=== PATIENT | female | born 1950 | race African-American/Black ===

== ENCOUNTER 2018-04-26 11:10 | Inpatient (IN) ==
[2018-04-26 11:23] VITALS: BMI 34.3
[2018-04-26 11:59] LABS: ABG ALLEN TEST POS; ABG HCO3 17.8 mmol/L (22-26)
[2018-04-26 12:05] LABS: BASOPHILS # (AUTO) 0.1 X10^3/uL (0.0-0.1); BASOPHILS % (AUTO) 0.9 % (0.2-1.0); EOSINOPHILS # (AUTO) 0.1 x10^3/uL (0.0-0.2); EOSINOPHILS % (AUTO) 1.2 % (0.9-2.9); HEMATOCRIT 28.1 % (36.0-47.0); HEMOGLOBIN 9.4 g/dL (12.0-16.0); LYMPHOCYTES # (AUTO) 1.3 X10^3/uL (1.3-2.9); LYMPHOCYTES % (AUTO) 22.6 % (21.0-51.0); MEAN CORPUSCULAR HEMOGLOBIN 32.1 pg (27.0-34.0); MEAN CORPUSCULAR HGB CONC 33.5 g/dL (33.0-35.0); MEAN CORPUSCULAR VOLUME 95.9 fL (80.0-100.0); MEAN PLATELET VOLUME 6.5 fL (7.4-11.0); MONOCYTES # (AUTO) 0.7 x10^3/uL (0.3-0.8); NEUTROPHILS # (AUTO) 3.5 x10^3/uL (2.2-4.8); NEUTROPHILS % (AUTO) 63.3 % (42.0-75.0); PLATELET COUNT 420 X10^3/uL (150.0-450.0); RED BLOOD COUNT 2.93 X10^6/uL (3.5-5.4); RED CELL DISTRIBUTION WIDTH 17.6 % (11.6-16.5); WHITE BLOOD COUNT 5.6 X10^3/uL (3.6-10.0)
[2018-04-26] MEDS ORDERED: TORADOL 30 MG VIAL IVP ONE (12:13)
[2018-04-26] MEDS ORDERED: TORADOL 30 MG VIAL ONE (12:17)
[2018-04-26 12:22] LABS: BLOOD UREA NITROGEN 8 mg/dL (7-18); CALCIUM 8.4 mg/dL (8.5-10.1); CARBON DIOXIDE 23.2 mmol/L (21-32); CHLORIDE 100 mmol/L (98-107); COR NA(FOR HYPERGLY) 138 mmol/L (136-145); CREATININE 0.81 mg/dL (0.55-1.02); SODIUM 136 mmol/L (136-145); TROPONIN I 0.02 ng/mL (0-1.5); eGFR NON BLACK RACES > 60 (>60)
[2018-04-26 12:26] LABS: ALANINE AMINOTRANSFERASE 13 Units/L (12-78); ALBUMIN 2.2 g/dL (3.4-5.0); ALKALINE PHOSPHATASE 95 Units/L (46-116); ASPARTATE AMINO TRANSFERASE 33 Units/L (15-37); COR CA(FOR HYPOALB) 9.8 mg/dL (8.5-10.1); CREATINE KINASE 53 Units/L (26-192); CREATINE KINASE MB < 1.0 ng/mL (0-4.0); MAGNESIUM 1.9 mg/dL (1.7-2.9); TOTAL PROTEIN 7.6 g/dL (6.4-8.2)
[2018-04-26 12:28] LABS: BAND NEUTROPHILS % 3 % (0-10); CKMB % 1.9 % (<4)
[2018-04-26 12:30] LABS: PLATELET MORPHOLOGY COMMENT NORMAL (NORMAL)
[2018-04-26 12:31] LABS: ANISOCYTOSIS 1+
--- NOTE | 2018-04-26 12:53 | RAD ---
Examination: Portable AP chest History: SOB Comparison reference: None Findings: Normal transverse heart diameter with clear lungs and pleural spaces. Impression: No acute chest findings. Reported By:
[2018-04-26 13:08] LABS: B-TYPE NATRIURETIC PEPTIDE 91.2 pg/mL (0-79)
--- NOTE | 2018-04-26 13:08 | DR.DIZZY ---
HPI - Time seen Time seen: 11:50 - PCP Primary Care Physician: KEM - HPI Comment HPI Comment: SYMTOMS GOING ON FOR 2 WEEKS. WORSE TODAY. - Complaint Chief Complaint Doctor Comments: GENERALIZE WEAKNESS, INCREASING SOB AND BILATERAL LOWER EXTREMITY PAIN AANDRLE SWELLING THAT IS GETTING WORSE. MEDS AT HOME NOT HELPING PAIN. NO FEVER. Chief Complaint:: PT C/O BILAT LOWER EXT PAIN AND WEAKNESS THAT HAS BEEN GOING ON FOR 2 WEEKS. PT STATES THE PAIN HAS GOTTEN WORSE YESTERDAY. - Nurses Notes Reviewed Nurses Notes Review: Yes - Source History Provided: Patient, Family Member - Mode of Arrival Mode of Arrival: Wheelchair - Timing Onset of Chief Complaint: 04/25/18 Came on: Suddenly Onset of Symptoms Start Date: 04/25/18 Onset of Symptoms Start Time: 08:00 - Duration Duration: Constant Duration: Weeks - Location of Weakness Weakness Location: Generalized - Context Onset: At rest, With light exertion, With heavy exertion Does pt take pot. toxic medication?: No History of: None Stroke Symptoms: Dizziness - Severity Severity: Abnormal activity level - Modifying factors Worsens: Rest - Associated signs and symptoms Associated Signs and Symptoms: Near Syncope, Imbalance, Weak, Headache, Chest Pain, Palpitations, Nausea PMH - PMH Past Medical History: Yes Past Medical History: Anxiety, Depression, Diabetes, Hypertension, Hyperthyroidism Past Medical History Comment: BREAST CA, Past Surgical History: Yes Surgical History: Hysterectomy Past Surgical History Comment: BILAT KNEE - Family History History of Family Medical Conditions: No - Social History Does any household member use tobacco: No Alcohol Use: None Do you use any recreational Drugs:: No Lives With: Family Lives Where: Home - infectious screening In the last 2 months have you had wt loss of >10#?: NO Have you had fever, night sweats or hemotysis?: No Have you traveled outside the country in the last 6 months?: No Isolation: Standard - Vital Signs Vitals: Temperature 99.5 F Pulse Rate 135 Respiratory Rate 24 Blood Pressure 150/95 O2 Sat by Pulse Oximetry 89 Course - Treatment Treatment: SEE ORDERS. - Education/Counseling Education/Counseling: Patient, Education Educated On: Diagnosis, Needs for Follow Up ROR - Labs Reviewed Laboratory Results Reviewed?: Yes Result Diagrams: 04/29/18 05:51 04/29/18 05:51 - XRAY XRAY Interpreted by: Radiologist XRAY Findings: REPORT DISCUSS WITH PATIENT AND FAMILY. - EKG Rhythm: ST (EKG NOTED) - Labs Reviewed Laboratory: WBC 6.6 X10^3/uL (3.6-10.0) 04/29/18 05:51 RBC 2.78 X10^6/uL (3.5-5.4) L 04/29/18 05:51 Hgb 9.0 g/dL (12.0-16.0) L 04/29/18 05:51 Hct 26.7 % (36.0-47.0) L 04/29/18 05:51 MCV 95.8 fL (80.0-100.0) 04/29/18 05:51 MCH 32.2 pg (27.0-34.0) 04/29/18 05:51 MCHC 33.6 g/dL (33.0-35.0) 04/29/18 05:51 RDW 17.9 % (11.6-16.5) H 04/29/18 05:51 Plt Count 314 X10^3/uL (150.0-450.0) 04/29/18 05:51 Plt Count Comment Adequate (ADEQUATE) 04/28/18 05:57 MPV 6.5 fL (7.4-11.0) L 04/29/18 05:51 Neut % (Auto) 73.2 % (42.0-75.0) 04/29/18 05:51 Lymph % (Auto) 13.7 % (21.0-51.0) L 04/29/18 05:51 [place] % (Auto) 11.2 % (0.0-13.0) 04/29/18 05:51 Eos % (Auto) 1.1 % (0.9-2.9) 04/29/18 05:51 Baso % (Auto) 0.8 % (0.2-1.0) 04/29/18 05:51 Neut # (Auto) 4.8 x10^3/uL (2.2-4.8) 04/29/18 05:51 Lymph # (Auto) 0.9 X10^3/uL (1.3-2.9) L 04/29/18 05:51 [place] # (Auto) 0.7 x10^3/uL (0.3-0.8) 04/29/18 05:51 Eos # (Auto) 0.1 x10^3/uL (0.0-0.2) 04/29/18 05:51 Baso # (Auto) 0.1 X10^3/uL (0.0-0.1) 04/29/18 05:51 Absolute Nucleated RBC 1.6 /100WBC 04/29/18 05:51 Total Counted 100 04/27/18 05:47 Neutrophils % (Manual) 50 % (39-76) 04/27/18 05:47 Band Neutrophils % 6 % (0-10) 04/27/18 05:47 Lymphocytes % (Manual) 32 % (13-43) 04/27/18 05:47 Monocytes % (Manual) 8 % (4-9) 04/27/18 05:47 Eosinophils % (Manual) 4 % (0-6) 04/27/18 05:47 Nucleated RBCs 5 04/28/18 05:57 Atypical Lymphocytes 3 04/26/18 11:55 Plt Morphology Comment Normal (NORMAL) 04/28/18 05:57 RBC Morphology Normal (NORMAL) 04/28/18 05:57 Anisocytosis 1+ A 04/26/18 11:55 INR Target Range - 04/27/18 05:47 INR 3.08 (0.8-1.3) H 04/27/18 05:47 APTT 51.4 SECONDS (22.9-36.5) H 04/27/18 05:47 PTT Comment - 04/27/18 05:47 D-Dimer > 5000 ng/mL (0-400) H* 04/26/18 11:55 Sample Site Lr 04/26/18 11:52 ABG pH 7.580 (7.35-7.45) H* 04/26/18 11:52 ABG pCO2 19.0 mmHg (35.0-45.0) L* 04/26/18 11:52 ABG pO2 53.0 mmHg (80.0-100.0) L 04/26/18 11:52 ABG HCO3 17.8 mmol/L (22-26) L* 04/26/18 11:52 ABG O2 Saturation 92.0 % (90-100) 04/26/18 11:52 ABG Base Excess -2.0 mmol/L (-2.0-2.0) 04/26/18 11:52 Zi Test Pos 04/26/18 11:52 A-a Gradient 73.0 mmHg 04/26/18 11:52 FiO2 21.000 04/26/18 11:52 Blood Gas Comments Pt shad well. cdn 04/26/18 11:52 Sodium 135 mmol/L (136-145) L 04/29/18 05:51 Corrected Sodium TNP 04/29/18 05:51 Potassium 3.9 mmol/L (3.5-5.1) 04/29/18 05:51 Chloride 100 mmol/L (98-107) 04/29/18 05:51 Carbon Dioxide 22.5 mmol/L (21-32) 04/29/18 05:51 BUN 8 mg/dL (7-18) 04/29/18 05:51 Creatinine 0.84 mg/dL (0.55-1.02) 04/29/18 05:51 Est GFR (MDRD) Af Amer > 60 (>60) 04/29/18 05:51 Est GFR (MDRD) Non-Af > 60 (>60) 04/29/18 05:51 Glucose 87 mg/dL (65-99) 04/29/18 05:51 Calcium 8.0 mg/dL (8.5-10.1) L 04/29/18 05:51 Corrected Calcium 9.8 mg/dL (8.5-10.1) 04/29/18 05:51 Magnesium 2.0 mg/dL (1.7-2.9) 04/27/18 05:47 Total Bilirubin 0.70 mg/dL (0.2-1.0) 04/29/18 05:51 AST 29 Units/L (15-37) 04/29/18 05:51 ALT 11 Units/L (12-78) L 04/29/18 05:51 Alkaline Phosphatase 97 Units/L (46-116) 04/29/18 05:51 Creatine Kinase 58 Units/L (26-192) 04/27/18 00:05 CK-MB (CK-2) 1.3 ng/mL (0-4.0) 04/27/18 00:05 CK/CKMB % Calc 2.2 % (<4) 04/27/18 00:05 Troponin I 0.05 ng/mL (0-1.5) 04/27/18 00:05 B-Natriuretic Peptide 91.2 pg/mL (0-79) H 04/26/18 11:55 Total Protein 6.9 g/dL (6.4-8.2) 04/29/18 05:51 Albumin 1.8 g/dL (3.4-5.0) L 04/29/18 05:51 Globulin 5.1 g/dL (2.5-4.5) H 04/29/18 05:51 Albumin/Globulin Ratio 0.4 Ratio (1.1-2.1) L 04/29/18 05:51 Specimen Type Clean catch urine 04/27/18 12:49 Urine Color Dark yellow (YELLOW) 04/27/18 12:49 Urine Appearance Slightly hazy (CLEAR) 04/27/18 12:49 Urine pH 5.0 (5.0 - 8.0) 04/27/18 12:49 Ur Specific [place] 1.015 (1.000-1.030) 04/27/18 12:49 Urine Protein 2+ (NEGATIVE) 04/27/18 12:49 Urine Glucose (UA) Negative (NEGATIVE) 04/27/18 12:49 Urine Ketones 1+ (NEGATIVE) 04/27/18 12:49 Urine Occult Blood 2+ (NEGATIVE) 04/27/18 12:49 Urine Nitrite Negative (NEGATIVE) 04/27/18 12:49 Urine Bilirubin Negative (NEGATIVE) 04/27/18 12:49 Urine Urobilinogen 1+ (NORMAL) 04/27/18 12:49 Ur Leukocyte Esterase 2+ (NEGATIVE) 04/27/18 12:49 Urine RBC 3-5 /HPF (NONE SEEN) 04/27/18 12:49 Urine WBC 3-5 /HPF (NONE SEEN) 04/27/18 12:49 Ur Squamous Epith Cells Rare /HPF (NEGATIVE) 04/27/18 12:49 Urine Bacteria Trace /HPF (NEGATIVE) 04/27/18 12:49 Urine Mucus Few /HPF (NEGATIVE) 04/27/18 12:49 Ur Culture Indicated? No/not indicated 04/27/18 12:49 Acetone, Semi-Quant Negative (NEGATIVE) 04/26/18 11:55 - Diagnosis Discharge Problem: Leg pain, bilateral, Generalized weakness, Hypoxia Pulmonary embolism Qualifiers: Pulmonary embolism type: other Chronicity: acute Acute cor pulmonale presence: without acute cor pulmonale Qualified Code(s): I26.99 - Other pulmonary embolism without acute cor pulmonale - Discharge Plan Disposition: 09 ADMITTED INPATIENT Condition: Stable
[2018-04-26] MEDS ORDERED: NS 100 ML IV + SPIKE MINIBAG* 100 ML IV ONE (13:39)
--- NOTE | 2018-04-26 14:26 | CT ---
CT CHEST WITH IV CONTRAST - PE PROTOCOL HISTORY: Elevated D-dimer and hypoxia Comparison: None Technique: Non gated axial images of the chest were obtained with intravenous contrast according to p monary embolism protocol. MIPS were reconstructed. Dose reduction techniques including Automated Ex posure Control (AEC) and adjustment of mA and kV were utlized. Findings: Small segmental pulmonary embolism within the right lower lobe best seen on series 4, image 81. No ev idence of right heart strain The heart is normal in size. No pericardial effusion. No suspicious mediastinal or axillary lymph no gilbert. No focal consolidations, pleural effusions or pneumothorax. Airways are patent. No suspicious pulmona ry nodules or masses. Limited images of the upper abdomen are unremarkable. No aggressive osseous lesions. IMPRESSION: 1. Small, segmental right lower lobe pulmonary embolism. No evidence of right heart strain. Reported By:
[2018-04-26] MEDS ORDERED: LOVENOX INJ 100 MG SYR SC SCH (17:00)
[2018-04-26] MEDS: NS 1000 ML 1,000 ML IV SCH (17:15)
--- NOTE | 2018-04-26 18:06 | VAS ---
HISTORY: PEs Study: Bilateral lower extremity venous Doppler ultrasound Comparison: None TECHNIQUE: Multiple willis scale and color flow Doppler images of the deep venous system were obtained of the right and left lower extremity. FINDINGS: The deep venous system of the right and left lower extremities were evaluated from the level of the c ommon femoral vein through the popliteal vein. Normal color flow and augmentation can be observed. In addition, normal compression is seen throughout the deep venous system. IMPRESSION: 1. Negative for DVT. Reported By:
[2018-04-26 19:21] LABS: CREATINE KINASE MB 1.2 ng/mL (0-4.0); TROPONIN I 0.03 ng/mL (0-1.5)
[2018-04-26] MEDS: XARELTO PO SCH (21:06)
[2018-04-26] MEDS: TYLENOL 325 MG TAB PO PRN (23:40)
[2018-04-27 00:27] LABS: CKMB % 2.2 % (<4); CREATINE KINASE MB 1.3 ng/mL (0-4.0); TROPONIN I 0.05 ng/mL (0-1.5)
[2018-04-27] MEDS: NS 1000 ML 1,000 ML IV SCH ×2 (04:59→20:56)
[2018-04-27 06:24] LABS: EOSINOPHILS # (AUTO) 0.1 x10^3/uL (0.0-0.2); EOSINOPHILS % (AUTO) 2.1 % (0.9-2.9); HEMATOCRIT 26.4 % (36.0-47.0); HEMOGLOBIN 8.9 g/dL (12.0-16.0); LYMPHOCYTES # (AUTO) 1.1 X10^3/uL (1.3-2.9); LYMPHOCYTES % (AUTO) 22.9 % (21.0-51.0); MEAN CORPUSCULAR HEMOGLOBIN 32.3 pg (27.0-34.0); MEAN CORPUSCULAR HGB CONC 33.9 g/dL (33.0-35.0); MEAN CORPUSCULAR VOLUME 95.3 fL (80.0-100.0); MEAN PLATELET VOLUME 6.6 fL (7.4-11.0); MONOCYTES # (AUTO) 0.7 x10^3/uL (0.3-0.8); MONOCYTES % (AUTO) 14.8 % (0.0-13.0); NEUTROPHILS # (AUTO) 2.9 x10^3/uL (2.2-4.8); NEUTROPHILS % (AUTO) 59.2 % (42.0-75.0); PLATELET COUNT 381 X10^3/uL (150.0-450.0); RED BLOOD COUNT 2.77 X10^6/uL (3.5-5.4); RED CELL DISTRIBUTION WIDTH 17.6 % (11.6-16.5); WHITE BLOOD COUNT 4.9 X10^3/uL (3.6-10.0)
[2018-04-27 07:13] LABS: ALANINE AMINOTRANSFERASE 13 Units/L (12-78); ALBUMIN 1.9 g/dL (3.4-5.0); ALKALINE PHOSPHATASE 88 Units/L (46-116); ASPARTATE AMINO TRANSFERASE 43 Units/L (15-37); BLOOD UREA NITROGEN 8 mg/dL (7-18); CALCIUM 8.3 mg/dL (8.5-10.1); CARBON DIOXIDE 22.4 mmol/L (21-32); CHLORIDE 103 mmol/L (98-107); CREATININE 0.72 mg/dL (0.55-1.02); SODIUM 138 mmol/L (136-145); TOTAL PROTEIN 6.9 g/dL (6.4-8.2); eGFR NON BLACK RACES > 60 (>60)
[2018-04-27 07:33] LABS: BAND NEUTROPHILS % 6 % (0-10); PLATELET MORPHOLOGY COMMENT NORMAL (NORMAL)
[2018-04-27] MEDS ORDERED: COLACE CAP 100 MG PO ONE (09:00)
[2018-04-27] MEDS: MILK OF MAGNESIA PO SCH ×2 (09:14→20:56)
[2018-04-27] MEDS: XARELTO PO SCH ×2 (09:14→20:57)
[2018-04-27] MEDS: TYLENOL 325 MG TAB PO PRN ×2 (12:30→20:57)
[2018-04-27 13:03] LABS: BILIRUBIN,URINE NEGATIVE (NEGATIVE); BLOOD/HEMOGLOBIN,URINE 2+ (NEGATIVE); GLUCOSE, URINE NEGATIVE (NEGATIVE); KETONES,URINE 1+ (NEGATIVE); LEUKOCYTE ESTERASE ,URINE 2+ (NEGATIVE); NITRITES,URINE NEGATIVE (NEGATIVE); PROTEIN,URINE 2+ (NEGATIVE); UROBILINOGEN,URINE 1+ (NORMAL)
[2018-04-27 13:22] LABS: APPEARANCE,URINE SLIGHTLY HAZY (CLEAR); COLOR,URINE DARK YELLOW (YELLOW)
[2018-04-27 13:23] LABS: BACTERIA,URINE TRACE /HPF (NEGATIVE); MUCUS,URINE FEW /HPF (NEGATIVE); SQUAMOUS EPITHELIAL CELL,UR RARE /HPF (NEGATIVE)
[2018-04-27] MEDS: ROCEPHIN VIAL 1 GRAM 1 G in NS 100 ML IV + SPIKE MINIBAG* 100 ML IV SCH (15:06)
[2018-04-27] MEDS: COLACE CAP 100 MG PO SCH (20:56)
[2018-04-28 06:42] LABS: BASOPHILS # (AUTO) 0.1 X10^3/uL (0.0-0.1); BASOPHILS % (AUTO) 0.7 % (0.2-1.0); EOSINOPHILS % (AUTO) 0.6 % (0.9-2.9); HEMATOCRIT 26.1 % (36.0-47.0); HEMOGLOBIN 8.9 g/dL (12.0-16.0); LYMPHOCYTES # (AUTO) 0.9 X10^3/uL (1.3-2.9); LYMPHOCYTES % (AUTO) 12.2 % (21.0-51.0); MEAN CORPUSCULAR HEMOGLOBIN 32.6 pg (27.0-34.0); MEAN CORPUSCULAR HGB CONC 34.1 g/dL (33.0-35.0); MEAN CORPUSCULAR VOLUME 95.5 fL (80.0-100.0); MEAN PLATELET VOLUME 6.9 fL (7.4-11.0); MONOCYTES # (AUTO) 0.8 x10^3/uL (0.3-0.8); MONOCYTES % (AUTO) 11.1 % (0.0-13.0); NEUTROPHILS # (AUTO) 5.5 x10^3/uL (2.2-4.8); NEUTROPHILS % (AUTO) 75.4 % (42.0-75.0); PLATELET COUNT 326 X10^3/uL (150.0-450.0); RED BLOOD COUNT 2.73 X10^6/uL (3.5-5.4); RED CELL DISTRIBUTION WIDTH 17.8 % (11.6-16.5); WHITE BLOOD COUNT 7.3 X10^3/uL (3.6-10.0)
[2018-04-28 07:01] LABS: PLATELET MORPHOLOGY COMMENT NORMAL (NORMAL)
[2018-04-28 07:15] LABS: ALANINE AMINOTRANSFERASE 12 Units/L (12-78); ALBUMIN 1.8 g/dL (3.4-5.0); ALKALINE PHOSPHATASE 94 Units/L (46-116); ASPARTATE AMINO TRANSFERASE 51 Units/L (15-37); BLOOD UREA NITROGEN 6 mg/dL (7-18); CARBON DIOXIDE 20.8 mmol/L (21-32); CHLORIDE 103 mmol/L (98-107); COR CA(FOR HYPOALB) 9.8 mg/dL (8.5-10.1); CREATININE 0.73 mg/dL (0.55-1.02); SODIUM 136 mmol/L (136-145); TOTAL PROTEIN 6.7 g/dL (6.4-8.2); eGFR NON BLACK RACES > 60 (>60)
[2018-04-28] MEDS ORDERED: GLUCOPHAGE ONE (08:50)
[2018-04-28] MEDS: ROCEPHIN VIAL 1 GRAM 1 G in NS 100 ML IV + SPIKE MINIBAG* 100 ML IV SCH (08:52)
[2018-04-28] MEDS: HYZAAR 50/12.5 MG PO SCH (08:52)
[2018-04-28] MEDS: XARELTO PO SCH ×2 (08:52→21:31)
[2018-04-28] MEDS: GLUCOPHAGE PO SCH (08:52)
[2018-04-28] MEDS: NS 1000 ML 1,000 ML IV SCH ×2 (08:53→21:31)
[2018-04-28] MEDS: MILK OF MAGNESIA PO SCH ×2 (08:53→21:31)
[2018-04-28] MEDS: ANTIVERT TAB 25 MG PO PRN ×2 (12:03→22:11)
--- NOTE | 2018-04-28 13:07 | DR.H&P ---
H&P - History & Physical for Day of: H&P Date: 04/26/18 - Chief Complaint Chief Complaint: lower extremity pain, weakness, shortness of breath - History of Present Illness History of Present Illness: is a 68 year old black female who presented to the Emergency Room with complaints of bilateral lower extremity pain and weakness. She reports that symptoms started approximately two weeks ago and has progressively gotten worse. Associated symptoms include shortness of breath. On arrival, vitals were 98.9, 115, 24, 94% RA, 157/88. Labs were obtained. Abnormal lab values include the following: RBC 2.93, HGB 9.4, HCT 28.1 , RDW 17.6, MPV 6.5, D-Dimer > 5000, Glucose 163, Calcium 8.4, Total Bilirubin 1.30, B-Natriurectic Peptide 91.2, Albumin 2.2, Globulin 5.4, A/G ratio 0.4. D- Dimer > 5000. An abg was collected and revealed a PH 7.580, PCO2 19.0, PO2 53.0 , HCO3 17.8. Chest x-ray revealed no acute chest findings. Chest CTA revealed a small, segmental right lower lobe pulmonary embolism. No evidence of right heart strain. A venous doppler study revealed negative for DVT. Patient has a history significant to breast cancer and is currently receiving treatments. Patient will be admitted to the hospital for further evaluation of leg pain, weakness, and pulmonary embolus. Patient will be started on NS 1000 ML IV @ KVO for gentle IV hydration and given Xarelto 15 MG PO BID for anticoagulation therapy. We will continue to monitor patient and repeat labs in the am. - Past Medical History Past Medical History: Anxiety, Depression, Diabetes, Hypertension, Hyperthyroidism - Past Surgical History Surgical History: Hysterectomy - Family History Family Medical History: Cancer, Hypertension - Social History Does patient currently use any type of tobacco product: No Have you used tobacco products in the last 12 months: No Type of Tobacco Use: None Does any household member use tobacco: No Alcohol Use: None Drug Use: None - Medications Home Medications: morphine Allergy (Unknown, Verified 04/26/18 19:11) CONTINUE taking the following medications fentanyl [Duragesic] 50 mcg/hr TRANSDERMAL .Q72HR 04/26/18 [History] losartan-hydrochlorothiazide [Hyzaar] 1 tab PO DAILY 04/26/18 [History] meclizine 1 tab PO BID PRN 04/26/18 [History] metformin 500 mg PO DAILY 04/26/18 [History] nitrofurantoin monohyd/m-cryst 1 tab PO BID 04/26/18 [History] sulfamethoxazole-trimethoprim 1 tab PO BID 04/26/18 [History] - Review of Systems Constitutional: Weakness Eyes: No Symptoms Reported ENT: No Symptoms Reported Respiratory: No Symptoms Reported Cardiovascular: No Symptoms Reported Gastrointestinal: No Symptoms Reported Genitourinary: No Symptoms Reported Musculoskeletal: Leg Pain Skin: No Symptoms Reported - Physical Exam Vital Signs: Temperature 99.3 F Pulse Rate [Apical] 109 Pulse Rate 135 Respiratory Rate 24 Blood Pressure [Left Arm] 143/68 Blood Pressure 150/95 O2 Sat by Pulse Oximetry 98 Oriented: Normal Eyes: Normal Ear: Normal Nose: Normal Throat: Normal Respiratory: Diminished Throughout Cardiovascular: Tachycardia. negative: S3, S4, Murmur : Normal Auscultation: Bowel Sounds: Normal Palpation: Normal Tenderness: Normal Skin: Normal Musculoskeletal: Normal Psychiatric: Normal Mood Description: Calm Affect: Normal Speech Pattern: Clear - Assessment/Plan (1) Pulmonary embolism Qualifiers: Pulmonary embolism type: other Chronicity: acute Acute cor pulmonale presence: without acute cor pulmonale Qualified Code(s): I26.99 - Other pulmonary embolism without acute cor pulmonale Status: Acute Plan: xarelto 15mg po bid, supplemental oxygen, continue to monitor (2) Leg pain, bilateral Status: Acute (3) Generalized weakness Status: Acute - Allergies Allergies/Adverse Reactions: Allergies Allergy/AdvReac Type Severity Reaction Status Date / Time morphine Allergy Unknown Verified 04/26/18 19:11
--- NOTE | 2018-04-28 15:21 | PCM.PROG ---
Progress Note - Progress Note for Day of Date: 04/27/18 - Subjective Subjective: IS BEING TREATED FOR A PUMONARY EMBOLISM, BILATERAL LEG PAIN, AND GENERALIZED WEAKNESS. TODAY, SHE IS ALERT AND ORIENTED, LYING IN BED ON MORNING ROUNDS. SHE CONTINUES WITH SHORTNESS OF BREATH AND GENERALIZED WEAKNESS. ON EXAMINATION, HEART IS REGULAR IN RATE AND RHYTHM. BILATERAL LUNGS ARE NOTED WITH DIMINISHED LUNG SOUNDS TO AUSCULTATION. ABDOMEN IS ROUND, SOFT, AND NON-TENDER WITH NORMAL BOWEL SOUNDS NOTED IN ALL QUADRANTS. HER VITALS THIS MORNING ARE 98.0-83-22-94%-132/78. LABS WERE OBTAINED. ABNORMAL LAB VALUES INCLUDE THE FOLLOWING: RBC 2.77, HGB 8.9, HCT 26.4, GLUCOSE 106, CALCIUM 8.3, AST 43, ALBUMIN 1.9. CARDIAC ENZYMES HAVE BEEN WITHIN NORMAL LIMITS. WE OBTAINED A URINALYSIS TODAY WHICH REVEALED WBC 3-5, RBC 3-5, LEUKOCYTES 2+, BACTERIA TRACE. SHE CONTINUES ON XARELTO 15MG PO BID. TODAY WE WILL START ROCEPHIN 1GM IV DAILY. OTHERWISE, WE WILL FOLLOW UP WITH AM LABS AND CONTINUE TO MONITOR PATIENT. - Past Medical Family Social History Past Med/Fam/Surg Hx: No changes since H&P Allergies: Allergies morphine Allergy (Unknown, Verified 04/26/18 19:11) - Review of Systems ROS: No change since H&P - Vital Signs and I&O's Vital Signs: Temperature 99.3 F Pulse Rate [Apical] 113 Pulse Rate 135 Respiratory Rate 30 Blood Pressure [Left Arm] 143/79 Blood Pressure 150/95 O2 Sat by Pulse Oximetry 92 Intake and Output: Intake & Output 04/26/18 04/27/18 04/28/18 04/29/18 11:59 11:59 11:59 11:59 Intake Total 961 / 961 1830 / 1830 Output Total 600 / 600 Balance 961 / 961 1230 / 1230 - Physical Exam Oriented: Normal Eyes: Normal Ear: Normal Nose: Normal Throat: Normal Respiratory: Diminished Cardiovascular: Tachycardia. negative: S3, S4, Murmur : Normal Auscultation: Bowel Sounds: Normal Palpation: Normal Tenderness: Normal Skin: Normal Musculoskeletal: Normal Psychiatric: Normal Mood Description: Calm Affect: Normal Speech Pattern: Clear - Laboratory and Diagnostics Result Diagrams: 04/28/18 05:57 04/28/18 05:57 Labs: Laboratory WBC 7.3 X10^3/uL (3.6-10.0) 04/28/18 05:57 RBC 2.73 X10^6/uL (3.5-5.4) L 04/28/18 05:57 Hgb 8.9 g/dL (12.0-16.0) L 04/28/18 05:57 Hct 26.1 % (36.0-47.0) L 04/28/18 05:57 MCV 95.5 fL (80.0-100.0) 04/28/18 05:57 MCH 32.6 pg (27.0-34.0) 04/28/18 05:57 MCHC 34.1 g/dL (33.0-35.0) 04/28/18 05:57 RDW 17.8 % (11.6-16.5) H 04/28/18 05:57 Plt Count 326 X10^3/uL (150.0-450.0) 04/28/18 05:57 Plt Count Comment Adequate (ADEQUATE) 04/28/18 05:57 MPV 6.9 fL (7.4-11.0) L 04/28/18 05:57 Neut % (Auto) 75.4 % (42.0-75.0) H 04/28/18 05:57 Lymph % (Auto) 12.2 % (21.0-51.0) L 04/28/18 05:57 [place] % (Auto) 11.1 % (0.0-13.0) 04/28/18 05:57 Eos % (Auto) 0.6 % (0.9-2.9) L 04/28/18 05:57 Baso % (Auto) 0.7 % (0.2-1.0) 04/28/18 05:57 Neut # (Auto) 5.5 x10^3/uL (2.2-4.8) H 04/28/18 05:57 Lymph # (Auto) 0.9 X10^3/uL (1.3-2.9) L 04/28/18 05:57 [place] # (Auto) 0.8 x10^3/uL (0.3-0.8) 04/28/18 05:57 Eos # (Auto) 0.0 x10^3/uL (0.0-0.2) 04/28/18 05:57 Baso # (Auto) 0.1 X10^3/uL (0.0-0.1) 04/28/18 05:57 Absolute Nucleated RBC 2.2 /100WBC 04/28/18 05:57 Total Counted 100 04/27/18 05:47 Neutrophils % (Manual) 50 % (39-76) 04/27/18 05:47 Band Neutrophils % 6 % (0-10) 04/27/18 05:47 Lymphocytes % (Manual) 32 % (13-43) 04/27/18 05:47 Monocytes % (Manual) 8 % (4-9) 04/27/18 05:47 Eosinophils % (Manual) 4 % (0-6) 04/27/18 05:47 Nucleated RBCs 5 04/28/18 05:57 Atypical Lymphocytes 3 04/26/18 11:55 Plt Morphology Comment Normal (NORMAL) 04/28/18 05:57 RBC Morphology Normal (NORMAL) 04/28/18 05:57 Anisocytosis 1+ A 04/26/18 11:55 INR Target Range - 04/27/18 05:47 INR 3.08 (0.8-1.3) H 04/27/18 05:47 APTT 51.4 SECONDS (22.9-36.5) H 04/27/18 05:47 PTT Comment - 04/27/18 05:47 D-Dimer > 5000 ng/mL (0-400) H* 04/26/18 11:55 Sample Site Lr 04/26/18 11:52 ABG pH 7.580 (7.35-7.45) H* 04/26/18 11:52 ABG pCO2 19.0 mmHg (35.0-45.0) L* 04/26/18 11:52 ABG pO2 53.0 mmHg (80.0-100.0) L 04/26/18 11:52 ABG HCO3 17.8 mmol/L (22-26) L* 04/26/18 11:52 ABG O2 Saturation 92.0 % (90-100) 04/26/18 11:52 ABG Base Excess -2.0 mmol/L (-2.0-2.0) 04/26/18 11:52 Zi Test Pos 04/26/18 11:52 A-a Gradient 73.0 mmHg 04/26/18 11:52 FiO2 21.000 04/26/18 11:52 Blood Gas Comments Pt shad well. cdn 04/26/18 11:52 Sodium 136 mmol/L (136-145) 04/28/18 05:57 Corrected Sodium TNP 04/28/18 05:57 Potassium 3.8 mmol/L (3.5-5.1) 04/28/18 05:57 Chloride 103 mmol/L (98-107) 04/28/18 05:57 Carbon Dioxide 20.8 mmol/L (21-32) L 04/28/18 05:57 BUN 6 mg/dL (7-18) L 04/28/18 05:57 Creatinine 0.73 mg/dL (0.55-1.02) 04/28/18 05:57 Est GFR (MDRD) Af Amer > 60 (>60) 04/28/18 05:57 Est GFR (MDRD) Non-Af > 60 (>60) 04/28/18 05:57 Glucose 89 mg/dL (65-99) 04/28/18 05:57 Calcium 8.0 mg/dL (8.5-10.1) L 04/28/18 05:57 Corrected Calcium 9.8 mg/dL (8.5-10.1) 04/28/18 05:57 Magnesium 2.0 mg/dL (1.7-2.9) 04/27/18 05:47 Total Bilirubin 0.80 mg/dL (0.2-1.0) 04/28/18 05:57 AST 51 Units/L (15-37) H 04/28/18 05:57 ALT 12 Units/L (12-78) 04/28/18 05:57 Alkaline Phosphatase 94 Units/L (46-116) 04/28/18 05:57 Creatine Kinase 58 Units/L (26-192) 04/27/18 00:05 CK-MB (CK-2) 1.3 ng/mL (0-4.0) 04/27/18 00:05 CK/CKMB % Calc 2.2 % (<4) 04/27/18 00:05 Troponin I 0.05 ng/mL (0-1.5) 04/27/18 00:05 B-Natriuretic Peptide 91.2 pg/mL (0-79) H 04/26/18 11:55 Total Protein 6.7 g/dL (6.4-8.2) 04/28/18 05:57 Albumin 1.8 g/dL (3.4-5.0) L 04/28/18 05:57 Globulin 4.9 g/dL (2.5-4.5) H 04/28/18 05:57 Albumin/Globulin Ratio 0.4 Ratio (1.1-2.1) L 04/28/18 05:57 Specimen Type Clean catch urine 04/27/18 12:49 Urine Color Dark yellow (YELLOW) 04/27/18 12:49 Urine Appearance Slightly hazy (CLEAR) 04/27/18 12:49 Urine pH 5.0 (5.0 - 8.0) 04/27/18 12:49 Ur Specific [place] 1.015 (1.000-1.030) 04/27/18 12:49 Urine Protein 2+ (NEGATIVE) 04/27/18 12:49 Urine Glucose (UA) Negative (NEGATIVE) 04/27/18 12:49 Urine Ketones 1+ (NEGATIVE) 04/27/18 12:49 Urine Occult Blood 2+ (NEGATIVE) 04/27/18 12:49 Urine Nitrite Negative (NEGATIVE) 04/27/18 12:49 Urine Bilirubin Negative (NEGATIVE) 04/27/18 12:49 Urine Urobilinogen 1+ (NORMAL) 04/27/18 12:49 Ur Leukocyte Esterase 2+ (NEGATIVE) 04/27/18 12:49 Urine RBC 3-5 /HPF (NONE SEEN) 04/27/18 12:49 Urine WBC 3-5 /HPF (NONE SEEN) 04/27/18 12:49 Ur Squamous Epith Cells Rare /HPF (NEGATIVE) 04/27/18 12:49 Urine Bacteria Trace /HPF (NEGATIVE) 04/27/18 12:49 Urine Mucus Few /HPF (NEGATIVE) 04/27/18 12:49 Ur Culture Indicated? No/not indicated 04/27/18 12:49 Acetone, Semi-Quant Negative (NEGATIVE) 04/26/18 11:55 - Plan (1) Pulmonary embolism Status: Acute Qualifiers: Pulmonary embolism type: other Chronicity: acute Acute cor pulmonale presence: without acute cor pulmonale Qualified Code(s): I26.99 - Other pulmonary embolism without acute cor pulmonale Plan: xarelto 15mg po bid, supplemental oxygen, continue to monitor (2) Leg pain, bilateral Status: Acute (3) Generalized weakness Status: Acute (4) Urinary tract infection Status: Acute Qualifiers: Urinary tract infection type: acute cystitis Hematuria presence: without hematuria Qualified Code(s): N30.00 - Acute cystitis without hematuria Plan: ROCEPHIN 1GM IV DAILY, CONTINUE TO MONITOR
[2018-04-28] MEDS: TYLENOL 325 MG TAB PO PRN (16:43)
[2018-04-28] MEDS: COLACE CAP 100 MG PO SCH (21:31)
[2018-04-29 06:10] LABS: BASOPHILS # (AUTO) 0.1 X10^3/uL (0.0-0.1); BASOPHILS % (AUTO) 0.8 % (0.2-1.0); EOSINOPHILS # (AUTO) 0.1 x10^3/uL (0.0-0.2); EOSINOPHILS % (AUTO) 1.1 % (0.9-2.9); HEMATOCRIT 26.7 % (36.0-47.0); LYMPHOCYTES # (AUTO) 0.9 X10^3/uL (1.3-2.9); LYMPHOCYTES % (AUTO) 13.7 % (21.0-51.0); MEAN CORPUSCULAR HEMOGLOBIN 32.2 pg (27.0-34.0); MEAN CORPUSCULAR HGB CONC 33.6 g/dL (33.0-35.0); MEAN CORPUSCULAR VOLUME 95.8 fL (80.0-100.0); MEAN PLATELET VOLUME 6.5 fL (7.4-11.0); MONOCYTES # (AUTO) 0.7 x10^3/uL (0.3-0.8); MONOCYTES % (AUTO) 11.2 % (0.0-13.0); NEUTROPHILS # (AUTO) 4.8 x10^3/uL (2.2-4.8); NEUTROPHILS % (AUTO) 73.2 % (42.0-75.0); PLATELET COUNT 314 X10^3/uL (150.0-450.0); RED BLOOD COUNT 2.78 X10^6/uL (3.5-5.4); RED CELL DISTRIBUTION WIDTH 17.9 % (11.6-16.5); WHITE BLOOD COUNT 6.6 X10^3/uL (3.6-10.0)
[2018-04-29 06:18] LABS: ALANINE AMINOTRANSFERASE 11 Units/L (12-78); ALBUMIN 1.8 g/dL (3.4-5.0); ALKALINE PHOSPHATASE 97 Units/L (46-116); ASPARTATE AMINO TRANSFERASE 29 Units/L (15-37); BLOOD UREA NITROGEN 8 mg/dL (7-18); CARBON DIOXIDE 22.5 mmol/L (21-32); CHLORIDE 100 mmol/L (98-107); COR CA(FOR HYPOALB) 9.8 mg/dL (8.5-10.1); CREATININE 0.84 mg/dL (0.55-1.02); SODIUM 135 mmol/L (136-145); TOTAL PROTEIN 6.9 g/dL (6.4-8.2); eGFR NON BLACK RACES > 60 (>60)
--- NOTE | 2018-04-29 07:54 | PCM.PROG ---
Progress Note - Progress Note for Day of Date: 04/28/18 - Subjective Subjective: IS BEING TREATED FOR A PUMONARY EMBOLISM, BILATERAL LEG PAIN, AND GENERALIZED WEAKNESS. TODAY, SHE IS ALERT AND ORIENTED, LYING IN BED ON MORNING ROUNDS. SHE CONTINUES WITH SHORTNESS OF BREATH AND GENERALIZED WEAKNESS. SHE ALSO REPORTS DIZZINESS WHEN SHE IS AMBULATING OR MOVING AROUND IN BED. ON EXAMINATION, HEART IS REGULAR IN RATE AND RHYTHM. BILATERAL LUNGS ARE NOTED WITH DIMINISHED LUNG SOUNDS TO AUSCULTATION. ABDOMEN IS ROUND, SOFT, AND NON-TENDER WITH NORMAL BOWEL SOUNDS NOTED IN ALL QUADRANTS. HER VITALS THIS MORNING ARE 98.3-64-7-100%-185/78. LABS WERE OBTAINED. ABNORMAL LAB VALUES INCLUDE THE FOLLOWING: RBC 2.73, HGB 8.9, HCT 26.1, CARBON DIOXIDE 20.8, BUN 6, CALCIUM 8.0, AST 51, ALBUMIN 1.8, GLOBULIN 4.9. SHE CONTINUES ON XARELTO 15MG PO BID. SHE WAS ALSO STARTED ON MECLIZINE PRN LAST NIGHT. TODAY WE WILL CONTINUE WITH CURRENT PLAN OF CARE. OTHERWISE, WE WILL FOLLOW UP WITH AM LABS AND CONTINUE TO MONITOR PATIENT. - Past Medical Family Social History Past Med/Fam/Surg Hx: No changes since H&P Allergies: Allergies morphine Allergy (Unknown, Verified 04/26/18 19:11) - Review of Systems ROS: No change since H&P - Vital Signs and I&O's Vital Signs: Temperature 98.6 F Pulse Rate [Apical] 100 Pulse Rate 135 Respiratory Rate 21 Blood Pressure [Left Arm] 115/74 Blood Pressure 150/95 O2 Sat by Pulse Oximetry 96 Intake and Output: Intake & Output 04/26/18 04/27/18 04/28/18 04/29/18 11:59 11:59 11:59 11:59 Intake Total 961 / 961 1830 / 1830 860 / 860 Output Total 600 / 600 700 / 700 Balance 961 / 961 1230 / 1230 160 / 160 - Physical Exam Oriented: Normal Eyes: Normal Ear: Normal Nose: Normal Throat: Normal Respiratory: Diminished Cardiovascular: Tachycardia. negative: S3, S4, Murmur : Normal Auscultation: Bowel Sounds: Normal Palpation: Normal Tenderness: Normal Skin: Normal Musculoskeletal: Normal Psychiatric: Normal Mood Description: Calm Affect: Normal Speech Pattern: Clear, Appropriate - Laboratory and Diagnostics Result Diagrams: 04/29/18 05:51 04/29/18 05:51 Labs: Laboratory WBC 6.6 X10^3/uL (3.6-10.0) 04/29/18 05:51 RBC 2.78 X10^6/uL (3.5-5.4) L 04/29/18 05:51 Hgb 9.0 g/dL (12.0-16.0) L 04/29/18 05:51 Hct 26.7 % (36.0-47.0) L 04/29/18 05:51 MCV 95.8 fL (80.0-100.0) 04/29/18 05:51 MCH 32.2 pg (27.0-34.0) 04/29/18 05:51 MCHC 33.6 g/dL (33.0-35.0) 04/29/18 05:51 RDW 17.9 % (11.6-16.5) H 04/29/18 05:51 Plt Count 314 X10^3/uL (150.0-450.0) 04/29/18 05:51 Plt Count Comment Adequate (ADEQUATE) 04/28/18 05:57 MPV 6.5 fL (7.4-11.0) L 04/29/18 05:51 Neut % (Auto) 73.2 % (42.0-75.0) 04/29/18 05:51 Lymph % (Auto) 13.7 % (21.0-51.0) L 04/29/18 05:51 [place] % (Auto) 11.2 % (0.0-13.0) 04/29/18 05:51 Eos % (Auto) 1.1 % (0.9-2.9) 04/29/18 05:51 Baso % (Auto) 0.8 % (0.2-1.0) 04/29/18 05:51 Neut # (Auto) 4.8 x10^3/uL (2.2-4.8) 04/29/18 05:51 Lymph # (Auto) 0.9 X10^3/uL (1.3-2.9) L 04/29/18 05:51 [place] # (Auto) 0.7 x10^3/uL (0.3-0.8) 04/29/18 05:51 Eos # (Auto) 0.1 x10^3/uL (0.0-0.2) 04/29/18 05:51 Baso # (Auto) 0.1 X10^3/uL (0.0-0.1) 04/29/18 05:51 Absolute Nucleated RBC 1.6 /100WBC 04/29/18 05:51 Total Counted 100 04/27/18 05:47 Neutrophils % (Manual) 50 % (39-76) 04/27/18 05:47 Band Neutrophils % 6 % (0-10) 04/27/18 05:47 Lymphocytes % (Manual) 32 % (13-43) 04/27/18 05:47 Monocytes % (Manual) 8 % (4-9) 04/27/18 05:47 Eosinophils % (Manual) 4 % (0-6) 04/27/18 05:47 Nucleated RBCs 5 04/28/18 05:57 Atypical Lymphocytes 3 04/26/18 11:55 Plt Morphology Comment Normal (NORMAL) 04/28/18 05:57 RBC Morphology Normal (NORMAL) 04/28/18 05:57 Anisocytosis 1+ A 04/26/18 11:55 INR Target Range - 04/27/18 05:47 INR 3.08 (0.8-1.3) H 04/27/18 05:47 APTT 51.4 SECONDS (22.9-36.5) H 04/27/18 05:47 PTT Comment - 04/27/18 05:47 D-Dimer > 5000 ng/mL (0-400) H* 04/26/18 11:55 Sample Site Lr 04/26/18 11:52 ABG pH 7.580 (7.35-7.45) H* 04/26/18 11:52 ABG pCO2 19.0 mmHg (35.0-45.0) L* 04/26/18 11:52 ABG pO2 53.0 mmHg (80.0-100.0) L 04/26/18 11:52 ABG HCO3 17.8 mmol/L (22-26) L* 04/26/18 11:52 ABG O2 Saturation 92.0 % (90-100) 04/26/18 11:52 ABG Base Excess -2.0 mmol/L (-2.0-2.0) 04/26/18 11:52 Zi Test Pos 04/26/18 11:52 A-a Gradient 73.0 mmHg 04/26/18 11:52 FiO2 21.000 04/26/18 11:52 Blood Gas Comments Pt shda well. cdn 04/26/18 11:52 Sodium 135 mmol/L (136-145) L 04/29/18 05:51 Corrected Sodium TNP 04/29/18 05:51 Potassium 3.9 mmol/L (3.5-5.1) 04/29/18 05:51 Chloride 100 mmol/L (98-107) 04/29/18 05:51 Carbon Dioxide 22.5 mmol/L (21-32) 04/29/18 05:51 BUN 8 mg/dL (7-18) 04/29/18 05:51 Creatinine 0.84 mg/dL (0.55-1.02) 04/29/18 05:51 Est GFR (MDRD) Af Amer > 60 (>60) 04/29/18 05:51 Est GFR (MDRD) Non-Af > 60 (>60) 04/29/18 05:51 Glucose 87 mg/dL (65-99) 04/29/18 05:51 Calcium 8.0 mg/dL (8.5-10.1) L 04/29/18 05:51 Corrected Calcium 9.8 mg/dL (8.5-10.1) 04/29/18 05:51 Magnesium 2.0 mg/dL (1.7-2.9) 04/27/18 05:47 Total Bilirubin 0.70 mg/dL (0.2-1.0) 04/29/18 05:51 AST 29 Units/L (15-37) 04/29/18 05:51 ALT 11 Units/L (12-78) L 04/29/18 05:51 Alkaline Phosphatase 97 Units/L (46-116) 04/29/18 05:51 Creatine Kinase 58 Units/L (26-192) 04/27/18 00:05 CK-MB (CK-2) 1.3 ng/mL (0-4.0) 04/27/18 00:05 CK/CKMB % Calc 2.2 % (<4) 04/27/18 00:05 Troponin I 0.05 ng/mL (0-1.5) 04/27/18 00:05 B-Natriuretic Peptide 91.2 pg/mL (0-79) H 04/26/18 11:55 Total Protein 6.9 g/dL (6.4-8.2) 04/29/18 05:51 Albumin 1.8 g/dL (3.4-5.0) L 04/29/18 05:51 Globulin 5.1 g/dL (2.5-4.5) H 04/29/18 05:51 Albumin/Globulin Ratio 0.4 Ratio (1.1-2.1) L 04/29/18 05:51 Specimen Type Clean catch urine 04/27/18 12:49 Urine Color Dark yellow (YELLOW) 04/27/18 12:49 Urine Appearance Slightly hazy (CLEAR) 04/27/18 12:49 Urine pH 5.0 (5.0 - 8.0) 04/27/18 12:49 Ur Specific [place] 1.015 (1.000-1.030) 04/27/18 12:49 Urine Protein 2+ (NEGATIVE) 04/27/18 12:49 Urine Glucose (UA) Negative (NEGATIVE) 04/27/18 12:49 Urine Ketones 1+ (NEGATIVE) 04/27/18 12:49 Urine Occult Blood 2+ (NEGATIVE) 04/27/18 12:49 Urine Nitrite Negative (NEGATIVE) 04/27/18 12:49 Urine Bilirubin Negative (NEGATIVE) 04/27/18 12:49 Urine Urobilinogen 1+ (NORMAL) 04/27/18 12:49 Ur Leukocyte Esterase 2+ (NEGATIVE) 04/27/18 12:49 Urine RBC 3-5 /HPF (NONE SEEN) 04/27/18 12:49 Urine WBC 3-5 /HPF (NONE SEEN) 04/27/18 12:49 Ur Squamous Epith Cells Rare /HPF (NEGATIVE) 04/27/18 12:49 Urine Bacteria Trace /HPF (NEGATIVE) 04/27/18 12:49 Urine Mucus Few /HPF (NEGATIVE) 04/27/18 12:49 Ur Culture Indicated? No/not indicated 04/27/18 12:49 Acetone, Semi-Quant Negative (NEGATIVE) 04/26/18 11:55 - Plan (1) Pulmonary embolism Status: Acute Qualifiers: Pulmonary embolism type: other Chronicity: acute Acute cor pulmonale presence: without acute cor pulmonale Qualified Code(s): I26.99 - Other pulmonary embolism without acute cor pulmonale Plan: xarelto 15mg po bid, supplemental oxygen, continue to monitor (2) Leg pain, bilateral Status: Acute (3) Generalized weakness Status: Acute (4) Urinary tract infection Status: Acute Qualifiers: Urinary tract infection type: acute cystitis Hematuria presence: without hematuria Qualified Code(s): N30.00 - Acute cystitis without hematuria Plan: ROCEPHIN 1GM IV DAILY, CONTINUE TO MONITOR (5) Vertigo Status: Acute Plan: MECLIZINE 25MG PO BID PRN, CONTINUE TO MONITOR
[2018-04-29] MEDS ORDERED: GLUCOPHAGE ONE (08:16)
[2018-04-29] MEDS: ROCEPHIN VIAL 1 GRAM 1 G in NS 100 ML IV + SPIKE MINIBAG* 100 ML IV SCH (08:34)
[2018-04-29] MEDS: GLUCOPHAGE PO SCH (08:35)
[2018-04-29] MEDS: NORCO 5/325 MG TAB PO PRN ×2 (08:35→12:45)
[2018-04-29] MEDS: HYZAAR 50/12.5 MG PO SCH (08:35)
[2018-04-29] MEDS: XARELTO PO SCH (08:35)
[2018-04-29] MEDS: MILK OF MAGNESIA PO SCH (09:45)
[2018-04-29 13:04] VITALS: BP 142/79
--- NOTE | 2018-05-20 00:33 | DR.CARTERD ---
- Discharge Summary for: Discharge Summary for Date of:: 04/29/18 - Admission Date Date of Admission: 04/26/18 - Admission Diagnoses Admission Diagnosis: (1) Pulmonary embolism (2) Leg pain, bilateral (3) Generalized weakness - Discharge Date Discharge Date: 04/29/18 - Discharge Diagnoses Discharge Diagnosis: (1) Pulmonary embolism (2) Leg pain, bilateral (3) Generalized weakness (4) Urinary tract infection (5) Vertigo - Hospital Course Hospital Course: Day one, Ms. Guallpa is a 68 year old black female who presented to the Emergency Room with complaints of bilateral lower extremity pain and weakness. She reported that symptoms started approximately two weeks prior and had progressively worsened. Associated symptoms included shortness of breath. On arrival, vitals were 98.9, 115, 24, 94% RA, 157/88. Labs were obtained. Abnormal lab values included the following: RBC 2.93, HGB 9.4, HCT 28.1, RDW 17.6, MPV 6.5, D-Dimer > 5000, Glucose 163, Calcium 8.4, Total Bilirubin 1.30, B -Natriurectic Peptide 91.2, Albumin 2.2, Globulin 5.4, A/G ratio 0.4. D-Dimer > 5000. An abg was collected and revealed a PH 7.580, PCO2 19.0, PO2 53.0, HCO3 17.8. Chest x-ray revealed no acute chest findings. Chest CTA revealed a small, segmental right lower lobe pulmonary embolism. No evidence of right heart strain. A venous doppler study revealed negative for DVT. Patient had a history significant to breast cancer and was receiving treatments. Patient was admitted to the hospital for further evaluation of leg pain, weakness, and pulmonary embolus. Patient started on NS 1000 ML IV @ KVO for gentle IV hydration and given Xarelto 15 MG PO BID for anticoagulation therapy. We continued to monitor patient. Day two, Patient continued treatment for a pulmonary embolism, bilateral leg pain, and generalized weakness. She was alert and oriented. She continued with shortness of breath and generalized weakness. On auscultation, lungs were noted with diminished breath sounds. Vitals were: 98.0-83-22-94%-132/78. Abnormal labs included: RBC 2.77, HGB 8.9, HCT 26.4, GLUCOSE 106, CALCIUM 8.3, AST 43, ALBUMIN 1.9. Cardiac enzymes and ekg's wnl. She continued on Xarelto bid. We started Rocephin 1gm IV daily for UTI. We continued to monitor. Day three, Ms. Guallpa continued with shortness of breath. She also reported dizziness when ambulating or moving around in bed. On auscultation, lungs continued with diminished breath sounds. Vitals stable. Abnormal labs included: RBC 2.73, HGB 8.9, HCT 26.1, CARBON DIOXIDE 20.8, BUN 6, CALCIUM 8.0, AST 51, ALBUMIN 1.8, GLOBULIN 4.9. She continued on Xarelto bid. We started Meclizine as needed. We continued treatment and monitored. Day four, patient reported she was feeling better. No acute distress was noted. She denied shortness of breath or dizziness. On auscultation, lungs continued with diminished breath sounds. Vital signs stable. Labs wnl. We planned for discharge. Instructions for medications and follow up were discussed with patient and family, both voiced understanding. Patient discharged home in stable condition with family. - Discharge Medications Discharge Medications: Home Medication List fentanyl [Duragesic] 50 mcg/hr TRANSDERMAL .Q72HR 04/26/18 [History] losartan-hydrochlorothiazide [Hyzaar] 1 tab PO DAILY 04/26/18 [History] meclizine 1 tab PO BID PRN 04/26/18 [History] metformin 500 mg PO DAILY 04/26/18 [History] nitrofurantoin monohyd/m-cryst 1 tab PO BID 04/26/18 [History] sulfamethoxazole-trimethoprim 1 tab PO BID 04/26/18 [History] cetirizine [Zyrtec] 10 mg PO HS #30 tab 04/29/18 [Rx] oxycodone 1 tab PO PRN PRN 04/29/18 [History] rivaroxaban [Xarelto] 15 mg PO BID #42 tab 04/29/18 [Rx] Prescriptions: cetirizine [Zyrtec] Yovany Howell rivaroxaban [Xarelto] Yovany Howell - Discharge Disposition Discharge Disposition: Patient is to follow up in our office in three days.
== END 2018-04-29 13:15 | disposition home or self-care (01) | DRG 176 ==
LOC: ER 11:10 → ICU 16:09
PROVIDERS: ADMIT Internal Medicine; ATTEND Internal Medicine
DX: N30.00 Acute cystitis without hematuria; R94.31 Abnormal electrocardiogram [ECG] [EKG]; F41.8 Other specified anxiety disorders; R42 Dizziness and giddiness; I26.99 Other pulmonary embolism without acute cor pulmonale; M79.605 Pain in left leg; R06.02 Shortness of breath; M79.604 Pain in right leg; I10 Essential (primary) hypertension; R26.89 Other abnormalities of gait and mobility; R09.02 Hypoxemia; R53.1 Weakness
CPT/HCPCS: 36415; 36600; 71010; 71045; 71275; 80053; 81001; 82009; 82550; 82553; 82803; 83735; 83880; 84484; 85025; 85378; 85610; 85730; 87040; 93005; 93970; 96367; 96374; 97110; 97163; 97530; 99284; A4216; A4222; J0696; J1885; J3490; J7030; J7050